=== PATIENT | female | born 1990 | race Caucasian/White ===

== ENCOUNTER → 2019-07-15 13:30 | Observation (INO) ==
[~2019-07-15 13:30] MED LIST: Acetaminophen 325 MG TABLET PO ONE
== END | disposition home or self-care (01) ==
LOC: 1NENULAB
PROVIDERS: ADMIT Advanced Practice Midwife; ATTEND Advanced Practice Midwife

== ENCOUNTER → 2019-07-27 15:30 | Observation (INO) ==
[2019-07-27 11:40] LABS: Protein/Creatinine Ratio,Urine 0.16 mg/mg (0.00-0.20)
[2019-07-27 11:47] LABS: Basophils % 0.2 %; Eosinophils % 0.2 %; Hematocrit 36.9 % (35.3-44.9); Hemoglobin 12.9 g/dL (11.5-15.4); Immature Granulocytes % 0.6 % (0-4); Lymphocytes % 24.7 %; Mean Corpuscular Hemoglobin 34.1 pg (28.0-33.3); Mean Corpuscular Volume 97.6 fL (83.0-100.0); Mean Platelet Volume 12.6 fL (9.4-12.4); Monocytes # 0.4 K/mcL (0.0-1.3); Neutrophils # 5.7 K/mcL (1.6-8.9); Platelet Count 137 K/mcL (140-400); Red Blood Count 3.78 M/mcL (3.82-4.97); Red Cell Distribution Width 12.4 % (11.5-14.5); Segmented Neutrophils % 69.3 %; White Blood Count 8.3 K/mcL (4.3-11.1)
[2019-07-27] MEDS: Ringers Solution, Lactated 1,000 ML IVC ONE ×2 (12:08→13:38)
[2019-07-27 14:13] LABS: Alanine Aminotransferase 7 Units/L (7-52); Aspartate Amino Transferase 17 Units/L (13-39); BUN/Creatinine Ratio 13 (6-26); Blood Urea Nitrogen 9 mg/dL (6-20); Lactate Dehydrogenase 148 Units/L (140-271); Uric Acid 5.9 mg/dL (2.3-7.6); eGFR For African Americans > 60 (> 60); eGFR For Non-African Americans > 60 (> 60)
[~2019-07-27 15:30] MED LIST changes: +*HR* Promethazine 25 MG/ML VIAL IVP ONE; -Acetaminophen 325 MG TABLET PO ONE; +Acetaminophen/Butalbital/CaffeineTABLET PO STA; +Promethazine 25 MG in 0.9 % Sodium Chloride 50 ML IVPB ONE; +Ringers Solution, Lactated 1,000 ML ONE; +Ringers Solution, Lactated 500 ML IVC ONE
== END | disposition home or self-care (01) ==
LOC: 1NENULAB
PROVIDERS: ADMIT Registered Nurse; ATTEND Registered Nurse

== ENCOUNTER 2019-08-06 02:00 | Inpatient (IN) ==
[2019-08-06] MEDS ORDERED: Lidocaine 1% 20 ML MDV INFILT PRN (02:19)
[2019-08-06] MEDS ORDERED: Famotidine 20 MG/2 ML VIAL IVP PRN (02:19)
[2019-08-06] MEDS ORDERED: Naloxone 0.4 MG/ML INJ IVP PRN (02:19)
[2019-08-06] MEDS ORDERED: Ondansetron 4 MG/2 ML VIAL IVP PRN (02:19)
[2019-08-06] MEDS ORDERED: *HR* FentaNYL (PF) 100 MCG/2 ML VIAL IVP PRN (02:19)
[2019-08-06] MEDS ORDERED: miSOPROStoL 25 MCG TABLET PO PRN ×2 (02:19→04:34)
[2019-08-06] MEDS ORDERED: Metoclopramide 10 MG/2 ML VIAL IVP PRN (02:19)
[2019-08-06 03:30] LABS: Basophils % 0.3 %; Eosinophils % 0.5 %; Hematocrit 35.5 % (35.3-44.9); Hemoglobin 12.1 g/dL (11.5-15.4); Immature Granulocytes % 0.5 % (0-4); Lymphocytes # 2.7 K/mcL (0.6-4.6); Lymphocytes % 34.7 %; Mean Corpuscular HGB Conc 34.1 g/dL (31.6-35.5); Mean Corpuscular Hemoglobin 33.8 pg (28.0-33.3); Mean Corpuscular Volume 99.2 fL (83.0-100.0); Mean Platelet Volume 12.9 fL (9.4-12.4); Monocytes # 0.5 K/mcL (0.0-1.3); Monocytes % 6.2 %; Neutrophils # 4.5 K/mcL (1.6-8.9); Platelet Count 130 K/mcL (140-400); Red Blood Count 3.58 M/mcL (3.82-4.97); Red Cell Distribution Width 12.3 % (11.5-14.5); Segmented Neutrophils % 57.8 %; White Blood Count 7.9 K/mcL (4.3-11.1)
[2019-08-06 06:29] LABS: Amphetamine Screen,Urine Negative ng/mL (Cutoff=1000); Barbiturate Screen,Urine Positive ng/mL (Cutoff=200); Benzodiazepines Screen,Urine Negative ng/mL (Cutoff=200); Cannabinoid Screen,Urine Negative ng/mL (Cutoff = 50); Cocaine Screen,Urine Negative ng/mL (Cutoff= 300); Opiate Screen,Urine Negative ng/mL (Cutoff=300); Phencyclidine Screen,Urine Negative ng/mL (Cutoff=25)
[2019-08-06] MEDS ORDERED: Bupivacaine-MPF 0.25% 10 ML VIAL EP ONE (08:39)
[2019-08-06] MEDS ORDERED: *HR* FentaNYL (PF) 100 MCG/2 ML VIAL EP ONE (08:39)
[2019-08-06] MEDS ORDERED: EPHEDrine 50 MG/ML VIAL IVP PRN (08:39)
[2019-08-06] MEDS ORDERED: Epidural Premix (fent/bupiv) 110 ML EP ONE (08:44)
[2019-08-06] MEDS: Ringers Solution, Lactated 1,000 ML IVC SCH ×3 (09:20→23:09)
[2019-08-06] MEDS: Epidural Premix (fent/bupiv) 110 ML EP SCH ×3 (09:21→22:07)
[2019-08-06] MEDS ORDERED: Oxytocin 20 units/ LR 1000 mL 20 UNIT/1,000 ML BAG IVC SCH (09:30)
[2019-08-06] MEDS ORDERED: Terbutaline 1 MG/ML VIAL SQ ONE ×3 (11:13→18:31)
[2019-08-07] MEDS ORDERED: Lanolin 7 G OINT...G. TP PRN (05:53)
[2019-08-07] MEDS ORDERED: Benzocaine/Menthol 56 GM AEROSOL SPRAY TP PRN (05:53)
[2019-08-07] MEDS ORDERED: Measles/Mumps/Rubella Vacc 0.5 ML VIAL SQ PRN (05:53)
[2019-08-07] MEDS ORDERED: Oxytocin 20 units/ LR 1000 mL 20 UNIT/1,000 ML BAG IVC SCH (05:53)
[2019-08-07] MEDS: Ibuprofen 600 MG TABLET PO PRN ×3 (06:40→20:15)
[2019-08-07] MEDS: Prenatal Vit/FA 1 EACH TABLET PO SCH (07:50)
[2019-08-07] MEDS: Acetaminophen 325 MG TABLET PO PRN ×2 (12:08→20:15)
[2019-08-07 22:42] VITALS: BP 114/75
[2019-08-08] MEDS: Ibuprofen 600 MG TABLET PO PRN (05:30)
[2019-08-08] MEDS: Acetaminophen 325 MG TABLET PO PRN (05:30)
[2019-08-08] MEDS: Prenatal Vit/FA 1 EACH TABLET PO SCH (07:53)
[2019-08-08 09:20] LABS: Basophils % 0.3 %; Eosinophils # 0.1 K/mcL (0.0-0.6); Eosinophils % 0.7 %; Hematocrit 30.5 % (35.3-44.9); Immature Granulocytes % 0.8 % (0-4); Lymphocytes # 2.6 K/mcL (0.6-4.6); Lymphocytes % 22.8 %; Mean Corpuscular HGB Conc 33.4 g/dL (31.6-35.5); Mean Corpuscular Hemoglobin 33.7 pg (28.0-33.3); Mean Corpuscular Volume 100.7 fL (83.0-100.0); Mean Platelet Volume 12.9 fL (9.4-12.4); Monocytes # 0.5 K/mcL (0.0-1.3); Monocytes % 4.3 %; Neutrophils # 8.2 K/mcL (1.6-8.9); Platelet Count 113 K/mcL (140-400); Red Blood Count 3.03 M/mcL (3.82-4.97); Red Cell Distribution Width 13.1 % (11.5-14.5); Segmented Neutrophils % 71.1 %; White Blood Count 11.5 K/mcL (4.3-11.1)
[2019-08-08 09:25] LABS: Hemoglobin 10.2 g/dL (11.5-15.4)
== END 2019-08-08 12:30 | disposition home or self-care (01) | DRG 807 ==
LOC: 1NENULAB 02:14 → 1NENUOBS 08-07 05:52
PROVIDERS: ADMIT Obstetrics & Gynecology; ATTEND Obstetrics & Gynecology